=== PATIENT | female | born 1965 | race Caucasian/White ===

== ENCOUNTER 2021-04-09 07:54 | Inpatient (IN) ==
--- NOTE | 2021-03-25 11:47 | PAT Medication Instructions ---
Medication Instructions Date of Service March 25, 2021 Home Medications albuterol sulfate 1 puff INHALATION QID PRN cetirizine [Zyrtec] 10 mg PO QAM gabapentin 100 mg PO TID lisinopril 20 mg PO QAM montelukast 10 mg PO PM simvastatin [Zocor] 20 mg PO HS DO NOT take the morning of surgery cetirizine [Zyrtec] 10 mg PO QAM lisinopril 20 mg PO QAM Take morning of surgery With a small sip of water, OTHERWISE NOTHING TO EAT OR DRINK AFTER MIDNIGHT: albuterol sulfate 1 puff INHALATION QID PRN (if needed, and bring with you to the hospital) gabapentin 100 mg PO TID Take evening before surgery albuterol sulfate 1 puff INHALATION QID PRN (if needed) gabapentin 100 mg PO TID montelukast 10 mg PO PM simvastatin [Zocor] 20 mg PO HS Other Notes If you have any questions please call us at [phone] or [phone] or [phone] or [phone]
--- NOTE | 2021-03-26 11:32 | Anesthesiology Consultation ---
Date of Service March 26, 2021 Assessment & Plan (1) Encounter for pre-operative examination: COVID Status: As of 03/26 assessment, patient denies travel to endemic area, known exposure/sick contacts, or symptoms of COVID19. Patient advised to adhere to social distancing guidelines, wear a mask in public and avoid large crowds or unnecessary travel in the 2 weeks leading up to surgery. Preoperative COVID19 testing to be completed prior to surgery per surgeon's arrangements (03/17 3 at [facility]). Patient encouraged to be extra cautious/conscientious with COVID precautions between COVID testing and surgery. HCG AM DOS Chart Review Chart Review: Acceptable Risk for Surgery and Patient seen in Pre Admission Testing Teaching & Discussion Instructed NPO after midnight before surgery, except medications with 15 cc of water. Medication instructions provided according to the PAT guidelines. History Surgery Operation Date: 04/09/21 10:35 Proposed Procedures p L3-L5 Decompression and Fusion, Spinal Cord Monitoring - Mat Sauceda, Height/Weight Height: 5 ft 6 in Weight: 110.9 kg Allergies Allergy/AdvReac Type Severity Reaction Status Date / Time pseudoephedrine AdvReac Heart Verified 03/26/21 11:23 [From Sudafed] racing/palpitations muscle relaxers AdvReac Anxiety/res Uncoded 03/26/21 11:23 tlessness vanilla AdvReac Vomiting Uncoded 03/26/21 11:23 Medications Home Medications Medication Instructions Recorded Confirmed Last Taken albuterol sulfate 1 puff INHALATION QID PRN 03/16/21 03/16/21 Unknown cetirizine [Zyrtec] 10 mg PO QAM 03/16/21 03/16/21 Unknown gabapentin 100 mg PO TID 03/16/21 03/16/21 Unknown lisinopril 20 mg PO QAM 03/16/21 03/16/21 Unknown montelukast 10 mg PO PM 03/16/21 03/16/21 Unknown simvastatin [Zocor] 20 mg PO HS 03/16/21 03/16/21 Unknown Past Medical History Medical History (Updated 03/29/21 @ 09:02 by Ted Calderon) Asthma well controlled > rare inh use, none for months at a time Chronic back pain Degenerative disc disease Hyperlipidemia Hypertension Obesity Exercise / Class Metabolic Activity II 4-5 Yardwork/Stairs/Walk up hill (Denies CP or SOB with 1 FOS) Past Family History Family History Mother Colon cancer Past Surgical History Surgical History History of adenoidectomy History of cholecystectomy History of tonsillectomy History of tooth extraction Past Anesthesia History No Hx of Anesthesia Complications and No Family Hx of Anesthesia Complications History of PONV No Hx of PONV and No Hx of Motion Sickness (single ep of sea sickness) Social History Smoking Status: Never smoker Do You Dip or Chew Tobacco: No Hx Alcohol Use: No Hx Substance Use: No substance use type: does not use Review of Systems Pt denies any recent chest pain, shortness of breath, palpitations, cough, fever, URI, or uncontrolled acid reflux. Physical Exam Vital Signs BP: 108/69 P: 76bpm SPO2: 99% RA T: 98.4 F R: 12 ENMT Mouth: + dental bridge (upper R side/front) and + chipped teeth (chipped lower L tooth); no loose teeth Neck normal visual inspection and + limited neck extension (mildly) Respiratory normal respiratory effort, lungs clear to auscultation Cardiovascular RRR, no murmur, no edema Lab Results Anesthesia Preop Results Results Anesthesia Widget: WBC 5.96 K/uL (4.8-10.8) 03/26/21 Hgb 12.7 g/dL (12.0-16.0) 03/26/21 Hct 37.6 % (37-47) 03/26/21 Plt 234 K/uL (130-400) 03/26/21 Na 138 mmol/L (136-145) 03/26/21 K 3.8 mmol/L (3.5-5.1) 03/26/21 Cl 105 mmol/L (98-107) 03/26/21 CO2 27 mmol/L (21-32) 03/26/21 BUN 15 mg/dl (7-18) 03/26/21 Creat 1.06 mg/dl (0.6-1.2) 03/26/21 Glucose Level 64 mg/dl (70-99) L 03/26/21 PT 10.6 Seconds (9.0-12.0) 03/26/21 PTT 24.8 Seconds (21.0-31.0) 03/26/21 INR 1.0 (0.9-1.1) 03/26/21 Urine Color Yellow 03/26/21 Urine Appearance Clear (Clear) 03/26/21 Urine pH 5.5 (4.5-7.5) 03/26/21 Urine Specific [place] 1.008 (1.000-1.030) 03/26/21 Urine Protein Negative (Negative) 03/26/21 Urine Glucose (UA) Negative (Negative) 03/26/21 Urine Ketones Negative (Negative) 03/26/21 Urine Blood Negative (Negative) 03/26/21 Urine Nitrite Negative (Negative) 03/26/21 Urine Bilirubin Negative (Negative) 03/26/21 Urine Urobilinogen Negative (Negative) 03/26/21 Urine Leukocyte Esterase Negative (Negative) 03/26/21 Blood Type O Positive 03/26/21 Antibody Screen NEGATIVE 03/26/21 Testing Electrocardiogram Date: 03/26/21 Findings: + SB @ (58bpm) Chest X-Ray Date: 03/26/21 Findings: + NAD
[~2021-04-09 07:54] MED LIST: ACETAMINOPHEN 500 MG TAB PO SCH; CeleBREX 200 MG CAP PO SCH; GABAPENTIN 900 MG DOSE PO SCH; LR 15ML/HR IV SCH; ceFAZolin 2000MG 2,000 MG/15 ML SYR IV SCH
[2021-04-09] MEDS ORDERED: ATROPINE SULFATE 0.1 MG/ML 10ML SYR IV PRN (09:31)
[2021-04-09] MEDS ORDERED: ONDANSETRON INJ 2 MG/ML 2 ML VIAL IV PRN ×2 (09:31→14:56)
[2021-04-09] MEDS ORDERED: ePHEDrine sulfate 50 MG/ML AMP IV PRN (09:31)
[2021-04-09] MEDS ORDERED: HYDROmorphone INJ 2 MG/ML SYR/VIAL IV PRN (09:31)
[2021-04-09] MEDS ORDERED: fentaNYL citrate 100 MCG/2 ML VIAL IV PRN (09:31)
--- NOTE | 2021-04-09 09:34 | History & Physical Bridge Note ---
Date of Service April 09, 2021 History & Physical Bridge Note I have examined the patient, reviewed the History & Physical and in the interval since the performance of the History & Physical I have noted the following changes of clinical significance: no changes noted
--- NOTE | 2021-04-09 09:34 | History & Physical Report ---
Date of Service April 09, 2021 Assessment & Plan (1) Neurogenic claudication due to lumbar spinal stenosis: Admission and Anticipated Discharge Date Admission Date: L3-L5 decompression fusion History of Present Illness Chief Complaint: Back and leg pain Primary Care Provider: Anshul Hess PA-C This is a 55-year-old female who presents with chronic persistent back and leg pain. After failing stents course of nonoperative care she is here for surgical invention. Allergies Allergy/AdvReac Type Severity Reaction Status Date / Time pseudoephedrine AdvReac Intermediate Heart Verified 04/09/21 08:34 [From Sudafed] racing/palpitations muscle relaxers AdvReac Intermediate Anxiety/res Uncoded 04/09/21 08:34 tlessness vanilla AdvReac Intermediate Vomiting Uncoded 04/09/21 08:34 Home Medications Medication Instructions Recorded Confirmed Type albuterol sulfate 1 puff INHALATION QID PRN 03/16/21 04/09/21 History cetirizine [Zyrtec] 10 mg PO QAM 03/16/21 04/09/21 History gabapentin 100 mg PO TID 03/16/21 04/09/21 History lisinopril 20 mg PO QAM 03/16/21 04/09/21 History montelukast 10 mg PO PM 03/16/21 04/09/21 History simvastatin [Zocor] 20 mg PO HS 03/16/21 04/09/21 History Past Med/Surg History Medical History (Updated 04/09/21 @ 09:34 by Mat Sauceda DO) Asthma well controlled > rare inh use, none for months at a time Chronic back pain Degenerative disc disease Hyperlipidemia Hypertension Obesity Surgical History History of adenoidectomy History of cholecystectomy History of tonsillectomy History of tooth extraction Family History Mother Colon cancer Social History Smoking Status: Never smoker Second Hand Exposure: No; Do You Dip or Chew Tobacco: No; Tobacco Cessation Education Requested by Patient: No Hx Alcohol Use: No Hx Substance Use: No Preferred Language: Angolan Communication Ability: Effective Daytime Caregiver Required: No Beliefs That Will Affect Care: None Current Living Situation: Significant Other Other Information That Helps Us Care for You: No Feels Safe at Home: Yes Safety Concerns: Feels Safe At This Time Assistive Devices: Glasses Physical Exam Physical Exam: Patient is alert and oriented Heart regular rhythm Lungs clear to auscultation Results & Data ([facility]) Vital Signs (Past 12 Hours) Vital Signs Temp Pulse Resp BP Pulse Ox 04/09/21 08:51 37.2 C 67 18 137/74 98
[2021-04-09 09:45] LABS: Pregnancy Test, Serum Negative (Negative)
[2021-04-09] MEDS ORDERED: BUPIVACAINE/EPINEPHRINE 0.5% MPF 1:200,000 30 ML VIAL ONE ×2 (09:53→10:43)
[2021-04-09] MEDS ORDERED: MIDAZOLAM HCL 1 MG/ML 2ML VIAL ONE (09:57)
[2021-04-09] MEDS ORDERED: fentaNYL citrate 100 MCG/2 ML VIAL ONE (09:57)
[2021-04-09] MEDS ORDERED: FLOSEAL HEMOSTATIC MATRIX 10ML TOP ONE (11:09)
[2021-04-09] MEDS ORDERED: HYDROmorphone INJ 2 MG/ML SYR/VIAL ONE (11:11)
[2021-04-09] MEDS ORDERED: GLYCOPYRROLATE 0.2 MG/ML VIAL ONE (11:13)
[2021-04-09] MEDS ORDERED: ONDANSETRON INJ 2 MG/ML 2 ML VIAL ONE (11:13)
[2021-04-09] MEDS ORDERED: PHENYLEPHRINE 100MCG/ML 5ML SYR ONE (11:13)
[2021-04-09] MEDS ORDERED: LIDOCAINE 2% 2 ML VIAL/AMP(20MG/ML) INFIL ONE (11:13)
[2021-04-09] MEDS ORDERED: ROCURONIUM BROMIDE 10 MG/ML 5 ML VIAL IV ONE (11:13)
[2021-04-09] MEDS ORDERED: PROPOFOL IV EMULSION 10 MG/ML 20 ML VIAL IV ONE (11:13)
[2021-04-09] MEDS ORDERED: DEXAMETHASONE SOD INJ 4 MG/ML VIAL ONE (11:13)
[2021-04-09] MEDS ORDERED: ePHEDrine sulfate 50 MG/ML AMP ONE (11:13)
[2021-04-09] MEDS ORDERED: LARYING-O-JET KIT (LTA) ONE (11:13)
[2021-04-09] MEDS ORDERED: NEOSTIGMINE METHYLSULFATE 1 MG/ML 10ML VIAL ONE (11:13)
--- NOTE | 2021-04-09 12:54 | Fluoroscopy Report ---
FL lumbar spine 2-3V CLINICAL HISTORY: L3-5 DECOMPRESSION/FUSION/INTERBODY COMPARISON STUDY: FLUOROSCOPY TIME: 28 seconds. NUMBER OF FLUOROSCOPIC IMAGES: 2 FINDINGS: 2 intraoperative fluoroscopic spot images reveal postsurgical changes of an L3-L5 spinal de compression and fusion with L3-4 and L4-5 interbody fusions and posterior pedicle screw fixation IMPRESSION: Postsurgical changes of an L3-5 spinal decompression and fusion. ACT 112: Negative or not required by law. Electronically signed by: Ezequiel Weaver M.D. 04/09/2021 12:52 PM
--- NOTE | 2021-04-09 12:57 | Operative Report ---
Post Operative Report Pre & Post Diagnosis Operation Date: 04/09/21 09:45 Pre-Op Diagnosis: Spinal Stenosis, Lumbar Region with Neurogenic Claudication Post-Op Diagnosis: Spinal Stenosis, Lumbar Region with Neurogenic Claudication I identified the patient and participated in the time-out.: Yes Procedure Operation Date: 04/09/21 09:45 Actual Procedures #1 Lumbar decompression with bilateral medial facetectomies and foraminotomies L2-3, L3-4 and L4-5. #2 posterior spinal fusion L3-4 and L4-5. #3 placement posterior instrumentation L3-4 and L4-5. #4 interbody fusion L3-4 and L4-5 per #5 placement peek cage 12 x 22 mm at L3-4 and 13 x 22 mm at L for L5. #6 placement locally harvested morselized autograft in the posterior gutters. #7 placement of I factor combined with Vitoss in the interbody space and posterior lateral gutters. Surgeon Mat Sauceda, DO Addressing Machine Operator Nick Kong Estimated Blood Loss 200 Findings See Below Patient is 5 foot 6 inches tall weighing over 109 kg with a BMI in excess of 38. The patient's body habitus did contribute to significant Technical difficulty requiring her deepest retractors longus instruments in order to perform this procedure. At least 50% increase to the operative time. Specimens None Indications This is a 55-year-old female who presents with above-mentioned diagnosis after failing since course of nonoperative care she is here for the above-mentioned procedure. Description of Procedure Patient was met with identified informed consent obtained. Patient was then taken to the operative suite after undergoing general intubation placed in the prone position on Nehemias table on top of the Oc frame. All bony prominences well-padded eyes inspected to ensure no external pressure placed upon the bed at this point the lumbar spine was prepped and draped in normal sterile fashion. Sharp dissection with the assistance of Bovie cautery performed down to and exposing the lamina and transverse processes of L3-L4-L5 bilaterally. From caudal to cephalad fashion complete laminectomy of L4 L3 and partial laminectomy of L2 was performed including bilateral medial facetectomies and foraminotomies addressing severe central lateral recess as well as foraminal stenosis. Pedicle screws were then placed in L3-L4-L5 bilaterally with assistance of fluoroscopy and the proper sized rishabh placed. By way of a transforaminal portion left complete discectomy of L4-L5 was performed endplates curetted to subcortical being bone and a 13 x 22 mm peek cage filled with I factor tapped into position. Then proceeded to L3-L4 and again by way of a transforaminal portion left discectomy performed endplates curetted to subcortical bleeding bone and a 12 x 22 mm peek cage filled with I factor tapped in position. The rods were then compressed locked in final position bilaterally. The transverse processes of L3 L4-5 burred to subcortical bleeding bone. Locally harvested morselized autograft I factor and Vitoss was then placed in the posterior gutters. 15 round ROCIO drain inserted. The incision was then closed with 1 Vicryl the fascia 2-0 Vicryl subcutaneously and 4 Monocryl for final skin closure. Steri-Strip sterile dressings placed. Patient will continue PACU stable condition. Please note spinal cord monitoring was utilized at the procedure no changes noted. Lastly Renetta Queen was present throughout the entire surgery involved the patient positioning complex portions of the s urgery and final skin closure. I attest to the content of the Intraoperative Record and any orders documented therein. Any exceptions are noted below.
--- NOTE | 2021-04-09 14:14 | Anesthesiology Progress Note ---
Date of Service April 09, 2021 Anesthesia Post Procedure Vital Signs Vital Signs: Temp Pulse Pulse Resp BP BP Pulse Ox 04/09/21 14:10 36.3 C L 60 14 111/71 98 04/09/21 14:00 60 14 117/60 98 04/09/21 13:50 60 14 122/64 97 04/09/21 13:40 67 20 122/65 94 04/09/21 13:30 66 15 117/58 L 98 04/09/21 13:20 68 18 114/66 99 04/09/21 13:14 36.4 C L 83 19 113/80 99 04/09/21 08:51 37.2 C 67 18 137/74 98 Pain Intensity Left Leg: Pain Intensity: 4 Transfer of Care Handoff Completed per policy Notes Mental Status: alert / awake / arousable and participated in evaluation Patient Amnestic to Procedure: Yes Nausea / Vomiting: adequately controlled Pain: adequately controlled Airway Patency, RR, SpO2: stable & adequate BP & HR: stable & adequate Hydration State: stable & adequate Anesthetic Complications: no major complications apparent
[2021-04-09] MEDS: LACTATED RINGER'S 1,000 ML IV SCH (14:45)
[2021-04-09] MEDS ORDERED: SOD PHOSPHATE/SOD BIPHOSPHATE ENEMA 132 ML BTL PR PRN (14:56)
[2021-04-09] MEDS ORDERED: HYDROmorphone INJ 0.5 MG/0.5 ML SYR IV PRN (14:56)
[2021-04-09] MEDS ORDERED: DO NOT ADMINISTER PNEUMOCOCCAL VACCINE PRN (14:56)
[2021-04-09] MEDS ORDERED: NALOXONE HCL 0.4 MG/1 ML VIAL/CARP IV PRN (14:56)
[2021-04-09] MEDS ORDERED: METOCLOPRAMIDE HCL INJ 5 MG/ML 2 ML VIAL IV PRN (14:56)
[2021-04-09] MEDS ORDERED: FAMOTIDINE 20 MG TAB PO PRN (14:56)
[2021-04-09] MEDS ORDERED: ALUMINUM/MAGNESIUM SUSP 30 ML UDC PO PRN (14:56)
[2021-04-09] MEDS ORDERED: LORazepam 0.5 MG/1 ML VIAL IV PRN (14:56)
[2021-04-09] MEDS ORDERED: LORazepam 0.5 MG TAB PO PRN (14:56)
[2021-04-09] MEDS ORDERED: ONDANSETRON 4 MG OD TAB PO PRN (14:56)
[2021-04-09] MEDS ORDERED: MAGNESIUM HYDROXIDE SUSP 30 ML UDC PO PRN (14:56)
[2021-04-09] MEDS ORDERED: oxyCODONE HCL IR 5 MG TAB (IMMEDIATE RELEASE) PO PRN (14:56)
[2021-04-09] MEDS ORDERED: diphenhydrAMINE Capsule 25 MG CAP PO PRN (14:56)
[2021-04-09] MEDS ORDERED: traMADol HCL 50 MG TABLET PO PRN (14:56)
[2021-04-09] MEDS ORDERED: HYDROmorphone INJ 1 MG/ML SYRINGE IV PRN (14:56)
[2021-04-09] MEDS ORDERED: hydrOXYzine HCl 25 MG TAB PO PRN (14:56)
[2021-04-09] MEDS ORDERED: PROMETHAZINE HCL 12.5 MG in SODIUM CHLORIDE 0.9% 50 ML IV PRN (14:56)
[2021-04-09] MEDS ORDERED: ACETAMINOPHEN 1,000 MG/100 ML VIAL IV PRN (14:56)
[2021-04-09] MEDS ORDERED: DO NOT ADMINISTER FLU VACCINE PRN (14:56)
[2021-04-09] MEDS: KETOROLAC 30 MG/ML VIAL IV SCH ×2 (15:38→20:33)
--- NOTE | 2021-04-09 15:38 | Consultation ---
Date of Consultation April 09, 2021 Assessment & Plan (1) Status post lumbar surgery: Post op day# 0 S/P L3-L5 decompression and fusion by Dr Sauceda EBL#200ml -pain management per ortho -wound management per ortho -PT/OT as appropriate -DVT prophylaxis per ortho -incentive spirometry -monitor H&H for acute blood loss anemia; pre-op Hgb: 12.7 (2) Hypertension: -Continue lisinopril with holding parameters (3) Hyperlipidemia: -Continue simvastatin (4) Asthma: -Continue montelukast, albuterol prn DVT Prophylaxis -SCDs per ortho Disposition per primary service Follows with Anshul Hess PA-C for routine care Pt was seen and care coordinated with Dr Malloy. See addendum Thank you for this consultation. We will follow the patient with you during their hospital stay. You can reach a member of the [facility] Hospitalist Team 08/05 via tiger text Supervising Physician Co-Signing Physician Notes Patient seen and examined by me, care coordinated with SANDY Estevez, please refer to her note above for further detail. Pt is 55 y/o F with PMH CAD, HLD, asthma, obesity seen in medical consultation s/p L3-L5 decompression and fusion today by Dr. Sauceda. Postop patient reported mild nausea, now improved, she is no distress. Patient is alert and oriented and answering questions appropriately. Heart sounds regular, lungs are clear to auscultation bilaterally without any wheezing rhonchi or crackles. Abdomen is soft, obese, positive bowel sounds, nontender. Patient is moving extremities. She has Green catheter placed, with clear yellow urine. We will continue to closely monitor her hemodynamic status. Monitor for post-op anemia. Sushant Malloy MD History of Present Illness Requesting Physician: Dr Sauceda Reason for Consultation: Post op medical management Attending Physician: Mat Sauecda DO History of Present Illness Pt is 55 y/o F with PMH CAD, HLD, asthma, obesity seen in medical consultation s/p L3-L5 decompression and fusion today by Dr. Sauceda. Postop patient reports some nausea which has improved with antiemetic. Denies vomiting. Reports still has some numbness sensation to bilateral lower extremities but is starting to be able to move her legs. Denies headache, dizziness shortness of breath, chest pain, abdominal pain. Denies fever/chills, diaphoresis, neck pain, palpitations, cough, sore throat, choking, extremity edema, rashes, urinary symptoms. Allergies Allergy/AdvReac Type Severity Reaction Status Date / Time pseudoephedrine AdvReac Intermediate Heart Verified 04/09/21 08:34 [From Sudafed] racing/palpitations muscle relaxers AdvReac Intermediate Anxiety/res Uncoded 04/09/21 08:34 tlessness vanilla AdvReac Intermediate Vomiting Uncoded 04/09/21 08:34 Home Medications Medication Instructions Recorded Confirmed Type albuterol sulfate 1 puff INHALATION QID PRN 03/16/21 04/09/21 History cetirizine [Zyrtec] 10 mg PO QAM 03/16/21 04/09/21 History gabapentin 100 mg PO TID 03/16/21 04/09/21 History lisinopril 20 mg PO QAM 03/16/21 04/09/21 History montelukast 10 mg PO PM 03/16/21 04/09/21 History simvastatin [Zocor] 20 mg PO HS 03/16/21 04/09/21 History Patient History Medical History (Updated 04/09/21 @ 15:34 by Tigist Hebert PA-C) Asthma well controlled > rare inh use, none for months at a time Chronic back pain Degenerative disc disease Hyperlipidemia Hypertension Obesity Surgical History (Updated 04/09/21 @ 15:34 by Tigist Hebert PA-C) History of adenoidectomy History of cholecystectomy History of tonsillectomy History of tooth extraction Family History Mother Colon cancer Social History Smoking Status: Never smoker Second Hand Exposure: No; Do You Dip or Chew Tobacco: No; Tobacco Cessation Education Requested by Patient: No Hx Alcohol Use: No Hx Substance Use: No Preferred Language: German Communication Ability: Effective Yolk Spray Drier Required: No Beliefs That Will Affect Care: None Current Living Situation: Significant Other Other Information That Helps Us Care for You: No Feels Safe at Home: Yes Safety Concerns: Feels Safe At This Time Assistive Devices: Walker Review of Systems Review of Systems: All systems reviewed & are unremarkable except as noted in HPI & below Physical Exam Physical Exam: General: no distress, obese Head: normocephalic, atraumatic Eyes: conjunctiva non-injected, anicteric ENT: normal inspection external ears, nose, mucous membranes moist Neck: supple, trachea midline Lungs: clear, no respiratory distress, no wheezing/rhonchi/rales CV: RRR, no murmur,no pretibial edema Abd: normal BS, soft, non-tender Back: Surgical dressing in place is dry, ROCIO drain in place Ext: no cyanosis, no calf tenderness; pedal pushes and pulls intact bilaterally Neuro: A&O x 3, no focal deficits noted, normal affect Skin: warm, dry Results & Data ([facility]) Vital Signs (Past 12 Hours) Vital Signs Temp Pulse Pulse Resp BP BP Pulse Ox 04/09/21 14:20 60 14 109/75 98 04/09/21 14:10 36.3 C L 60 14 111/71 98 04/09/21 14:00 60 14 117/60 98 04/09/21 13:50 60 14 122/64 97 04/09/21 13:40 67 20 122/65 94 04/09/21 13:30 66 15 117/58 L 98 04/09/21 13:20 68 18 114/66 99 04/09/21 13:14 36.4 C L 83 19 113/80 99 04/09/21 08:51 37.2 C 67 18 137/74 98
[2021-04-09] MEDS: GABAPENTIN 100 MG CAP PO SCH ×2 (16:08→20:26)
[2021-04-09] MEDS: ceFAZolin 2000MG 2,000 MG/15 ML SYR IV SCH (17:38)
[2021-04-09] MEDS: MONTELUKAST SODIUM 10 MG TABLET PO SCH (20:26)
[2021-04-09] MEDS: SIMVASTATIN 20 MG TAB PO SCH (20:27)
[2021-04-09] MEDS: DOCUSATE SODIUM/SENNA 50/8.6MG TAB PO SCH (20:32)
[2021-04-10] MEDS: LACTATED RINGER'S 1,000 ML IV SCH ×2 (00:16→05:28)
[2021-04-10] MEDS: ceFAZolin 2000MG 2,000 MG/15 ML SYR IV SCH (02:07)
[2021-04-10] MEDS: KETOROLAC 30 MG/ML VIAL IV SCH ×2 (02:07→08:21)
[2021-04-10] MEDS: POLYETHYLENE (MIRALAX) 17 GM PACK PO SCH ×4 (05:28→23:40)
[2021-04-10 06:09] LABS: Hemoglobin 9.9 g/dL (12.0-16.0); Immature Granulocytes # (auto) 0.03 K/uL (0.00-0.02); Immature Granulocytes % (auto) 0.3 %; Lymphocytes # (auto) 0.82 K/uL (1.2-3.4); Lymphocytes % (auto) 7.1 %; Mean Corpuscular Hemoglobin 31.5 pg (25-34); Mean Corpuscular Hgb Conc 34.1 g/dL (32-36); Mean Corpuscular Volume 92.4 fL (80-100); Mean Platelet Volume 9.1 fL (7.4-10.4); Monocytes # (auto) 0.59 K/uL (0.11-0.59); Monocytes % (auto) 5.1 %; Neutrophils # (auto) 10.11 K/uL (1.4-6.5); Neutrophils % (auto) 87.5 %; Platelet Count 168 K/uL (130-400); RDW Coefficient of Variation 12.7 % (11.5-14.5); RDW Standard Deviation 42.8 fL (36.4-46.3); Red Blood Count 3.14 M/uL (4.2-5.4); White Blood Count 11.55 K/uL (4.8-10.8)
[2021-04-10 06:40] LABS: BUN Creatinine Ratio 15.9 (10-20); Creatinine Clr Calc Pharmacy 74.5 ml/min; Est GFR (African American) 67.4 ml/min; Est GFR (Non-African American) 58.2 ml/min; Potassium 4.7 mmol/L (3.5-5.1)
--- NOTE | 2021-04-10 07:03 | Hospitalist Progress Note ---
Date of Service April 10, 2021 Assessment & Plan (1) Status post lumbar surgery: Post op day# 1 S/P L3-L5 decompression and fusion by Dr Sauceda -pain management per ortho -wound management per ortho -PT/OT as appropriate -DVT prophylaxis per ortho -incentive spirometry -monitor H&H for acute blood loss anemia; pre-op Hgb: 12.7 Anemia, acute blood loss (post-op) and dilutional - current Hgb 9.9, preop Hgb 12.7 - expected, no need for blood transfusion at this time (2) Hypertension: -Continue lisinopril with holding parameters (3) Hyperlipidemia: -Continue simvastatin (4) Asthma: -Continue montelukast, albuterol prn DVT Prophylaxis -SCDs per ortho Disposition per primary service Follows with Anshul Hess PA-C for routine care Thank you for this consultation. We will follow the patient with you during their hospital stay. You can reach a [facility] via tiger text Admission and Anticipated Discharge Date Admission Date: April 09, 2021 Subjective Patient seen in postop, medical consult Currently sitting up in bed, in no acute distress Reported mild dizziness with walking yesterday after surgery Currently seems to be doing well, no chest pain, shortness of breath, abdominal pain, nausea or vomiting also denies any fevers or chills Review of Systems Review of Systems: All systems reviewed & are unremarkable except as noted in HPI & below Constitutional: no fever and no chills Respiratory: no cough and no dyspnea Cardiovascular: no chest pain and no palpitations Gastrointestinal: no abdominal pain, no nausea and no vomiting Physical Exam Physical Exam: General: no distress, obese Head: normocephalic, atraumatic Eyes: conjunctiva non-injected, anicteric ENT: normal inspection external ears, nose, mucous membranes moist Neck: supple, trachea midline Lungs: clear, no respiratory distress, no wheezing/rhonchi/rales CV: RRR, no murmur,no pretibial edema Abd: normal BS, soft, non-tender Back: Surgical dressing in place is dry, ROCIO drain in place Ext: no cyanosis, no calf tenderness; pedal pushes and pulls intact bilaterally Neuro: A&O x 3, no focal deficits noted, normal affect Skin: warm, dry Results & Data Results & Data ([facility]) Vital Signs (Past 12 Hours) Vital Signs Temp Pulse Resp BP Pulse Ox 04/10/21 02:11 36.4 C L 74 18 122/75 94 04/09/21 21:55 36.5 C 59 L 16 114/72 98 Laboratory Results 04/10/21 04/10/21 04/09/21 Range/Units 05:50 05:50 08:28 WBC 11.55 H (4.8-10.8) K/uL RBC 3.14 L (4.2-5.4) M/uL Hgb 9.9 L (12.0-16.0) g/dL Hct 29.0 L (37-47) % MCV 92.4 (80-100) fL MCH 31.5 (25-34) pg MCHC 34.1 (32-36) g/dL RDW Std Deviation 42.8 (36.4-46.3) fL RDW Coeff of Marla 12.7 (11.5-14.5) % Plt Count 168 (130-400) K/uL MPV 9.1 (7.4-10.4) fL Immature Gran % (Auto) 0.3 % Neut % (Auto) 87.5 % Lymph % (Auto) 7.1 % [place] % (Auto) 5.1 % Eos % (Auto) 0.0 % Baso % (Auto) 0.0 % Neut # (Auto) 10.11 H (1.4-6.5) K/uL Lymph # (Auto) 0.82 L (1.2-3.4) K/uL [place] # (Auto) 0.59 (0.11-0.59) K/uL Eos # (Auto) 0.00 (0-0.5) K/uL Baso # (Auto) 0.00 (0-0.2) K/uL Immature Gran # (Auto) 0.03 H (0.00-0.02) K/uL Sodium 137 (136-145) mmol/L Potassium 4.7 (3.5-5.1) mmol/L Chloride 105 (98-107) mmol/L Carbon Dioxide 26 (21-32) mmol/L Anion Gap 6.0 (3-11) BUN 17 (7-18) mg/dl Creatinine 1.08 (0.6-1.2) mg/dl Est Cr Clr Drug Dosing 74.5 ml/min Est GFR ( Amer) 67.4 ml/min Est GFR (Non-Af Amer) 58.2 ml/min BUN/Creatinine Ratio 15.9 (10-20) Glucose 125 H (70-99) mg/dl Calcium 9.0 (8.5-10.1) mg/dl HCG, Qual Negative (Negative) COVID-19 Eval Order SARS-CoV-2, RNA, NAAT (NEGATIVE) Blood Type Antibody Screen Crossmatch 04/09/21 04/09/21 04/09/21 Range/Units 08:28 08:13 08:13 WBC (4.8-10.8) K/uL RBC (4.2-5.4) M/uL Hgb (12.0-16.0) g/dL Hct (37-47) % MCV (80-100) fL MCH (25-34) pg MCHC (32-36) g/dL RDW Std Deviation (36.4-46.3) fL RDW Coeff of Marla (11.5-14.5) % Plt Count (130-400) K/uL MPV (7.4-10.4) fL Immature Gran % (Auto) % Neut % (Auto) % Lymph % (Auto) % [place] % (Auto) % Eos % (Auto) % Baso % (Auto) % Neut # (Auto) (1.4-6.5) K/uL Lymph # (Auto) (1.2-3.4) K/uL [place] # (Auto) (0.11-0.59) K/uL Eos # (Auto) (0-0.5) K/uL Baso # (Auto) (0-0.2) K/uL Immature Gran # (Auto) (0.00-0.02) K/uL Sodium (136-145) mmol/L Potassium (3.5-5.1) mmol/L Chloride (98-107) mmol/L Carbon Dioxide (21-32) mmol/L Anion Gap (3-11) BUN (7-18) mg/dl Creatinine (0.6-1.2) mg/dl Est Cr Clr Drug Dosing ml/min Est GFR ( Amer) ml/min Est GFR (Non-Af Amer) ml/min BUN/Creatinine Ratio (10-20) Glucose (70-99) mg/dl Calcium (8.5-10.1) mg/dl HCG, Qual (Negative) COVID-19 Eval [facility] [place] [place] SARS-CoV-2, RNA, NAAT NEGATIVE (NEGATIVE) Blood Type O Positive Antibody Screen NEGATIVE Crossmatch See Detail Medications Administered Current Inpatient Medications Acetaminophen (Acetaminophen 500 Mg Tab) 1,000 mg PO Q8H PRN PRN Reason: MILD Pain Scale 1,2,3 & Pre PT Stop: 05/09/21 14:55 Al Hydrox/Mg Hydrox/Simethicone (Aluminum/Magnesium Susp 30 Ml Udc) 30 ml PO Q6H PRN PRN Reason: Dyspepsia Stop: 05/09/21 14:55 Bisacodyl (Bisacodyl 10 Mg Supp) 10 mg OR DAILY PRN PRN Reason: Constipation Stop: 05/11/21 13:05 Cetirizine HCl (Cetirizine Hcl 10 Mg Tablet) 10 mg PO [facility] Stop: 05/10/21 08:59 Diphenhydramine HCl (Diphenhydramine Capsule 25 Mg Cap) 25 mg PO Q6H PRN PRN Reason: Allergic Rhinitis/Insomnia Stop: 05/09/21 14:55 Famotidine (Famotidine 20 Mg Tab) 20 mg PO Q12H PRN PRN Reason: Dyspepsia Stop: 05/09/21 14:55 Gabapentin (Gabapentin 100 Mg Cap) 100 mg PO BID@0900,1400 [facility] Stop: 05/09/21 15:14 Last Admin: 04/09/21 16:08 Dose: Not Given Documented by: Gabapentin (Gabapentin 100 Mg Cap) 200 mg PO [facility] Stop: 05/09/21 20:59 Last Admin: 04/09/21 20:26 Dose: 200 mg Documented by: Hydromorphone HCl (Hydromorphone Inj 0.5 Mg/0.5 Ml Syr) 0.5 mg IV Q3H PRN PRN Reason: MOD pain (scale 4-6) & Pre PT Stop: 04/23/21 14:55 Hydromorphone HCl (Hydromorphone Inj 1 Mg/Ml Syringe) 1 mg IV Q3H PRN PRN Reason: severe pain (scale 7-10) Stop: 04/23/21 14:55 Hydroxyzine HCl (Hydroxyzine Hcl 25 Mg Tab) 25 mg PO Q8H PRN PRN Reason: Anxiety Stop: 05/09/21 14:55 Acetaminophen (Ofirmev) 1,000 mg in 100 mls @ 400 mls/hr IV Q8H PRN PRN Reason: Pain Rating 1-3 & Pre PT Stop: 04/10/21 13:06 Lorazepam (Ativan) 0.5 mg in 1 mls @ 1 mls/min IV Q8H PRN PRN Reason: Sedation/Anxiety Stop: 05/09/21 14:55 Promethazine HCl 12.5 mg/ (Sodium Chloride) 50.5 mls @ 202 mls/hr IV Q6H PRN PRN Reason: Nausea &/or Vomiting Stop: 05/09/21 14:55 Influenza Virus Vaccine Quadrival (Do Not Administer Flu Vaccine) 1 ea N/A PRN PRN PRN Reason: Notification Stop: 05/09/21 14:55 Ketorolac Tromethamine (Ketorolac 30 Mg/Ml Vial) 30 mg IV Q6H [facility] Stop: 04/10/21 08:57 Last Admin: 04/10/21 02:07 Dose: 30 mg Documented by: Lisinopril (Lisinopril 20 Mg Tab) 20 mg PO QAM [facility] Stop: 05/10/21 08:59 Lorazepam (Lorazepam 0.5 Mg Tab) 0.5 mg PO Q8H PRN PRN Reason: sedation/anxiety Stop: 05/09/21 14:55 Magnesium Hydroxide (Magnesium Hydroxide Susp 30 Ml Udc) 30 ml PO Q24H PRN PRN Reason: Constipation Stop: 05/09/21 14:55 Metoclopramide HCl (Metoclopramide Hcl Inj 5 Mg/Ml 2 Ml Vial) 10 mg IV Q6H PRN PRN Reason: Nausea &/or Vomiting Stop: 05/09/21 14:55 Last Admin: 04/09/21 15:38 Dose: 10 mg Documented by: Montelukast Sodium (Montelukast Sodium 10 Mg Tablet) 10 mg PO PM [facility] Stop: 05/09/21 20:59 Last Admin: 04/09/21 20:26 Dose: 10 mg Documented by: Naloxone HCl (Naloxone Hcl 0.4 Mg/1 Ml Vial/Carp) 0.1 mg IV Q5M PRN PRN Reason: Oversedation/respiratory dep Stop: 05/09/21 14:55 Ondansetron HCl (Ondansetron Inj 2 Mg/Ml 2 Ml Vial) 4 mg IV Q6H PRN PRN Reason: Nausea &/or Vomiting Stop: 05/09/21 14:55 Ondansetron HCl (Ondansetron 4 Mg Od Tab) 4 mg PO Q6H PRN PRN Reason: Nausea Stop: 05/09/21 14:55 Oxycodone HCl (Oxycodone Hcl Ir 5 Mg Tab (Immediate Release)) 5 - 10 mg PO Q4H PRN PRN Reason: Pain & Pre PT Stop: 04/23/21 14:55 Pneumococcal Polyvalent Vaccine (Do Not Administer Pneumococcal Vaccine) 1 ea N/A PRN PRN PRN Reason: Notification Stop: 05/09/21 14:55 Polyethylene Glycol (Polyethylene (Miralax) 17 Gm Pack) 17 gm PO Q6 [facility] Stop: 05/10/21 05:59 Last Admin: 04/10/21 05:28 Dose: 17 gm Documented by: Senna/Docusate Sodium (Docusate Sodium/Senna 50/8.6mg Tab) 2 tab PO HS [facility] Stop: 05/09/21 20:59 Last Admin: 04/09/21 20:32 Dose: 2 tab Documented by: Simvastatin (Simvastatin 20 Mg Tab) 20 mg PO HS [facility] Stop: 05/09/21 20:59 Last Admin: 04/09/21 20:27 Dose: 20 mg Documented by: Sodium Biphosphate/Sodium Phosphate (Sod Phosphate/Sod Biphosphate Enema 132 Ml Btl) 132 ml OR ONE PRN PRN Reason: Constipation Stop: 05/09/21 14:55 Tramadol HCl (Tramadol Hcl 50 Mg Tablet) 50 - 100 mg PO Q4H PRN PRN Reason: Moderate-Severe pain & Pre PT Stop: 05/09/21 14:55
[2021-04-10] MEDS: GABAPENTIN 100 MG CAP PO SCH ×3 (08:22→19:31)
[2021-04-10] MEDS: CETIRIZINE HCL 10 MG TABLET PO SCH (08:22)
[2021-04-10] MEDS: lisinopril 20 MG TAB PO SCH (08:22)
--- NOTE | 2021-04-10 08:40 | Orthopedic Progress Note ---
Date of Service April 10, 2021 Assessment & Plan (1) Neurogenic claudication due to lumbar spinal stenosis: Patient is doing well postoperative day 1 posterior lumbar decompression and fusion L3-5. She will start physical therapy today. DVT prophylaxis in the form of teds and SCDs. Maintain ROCIO drain and dressing. Continue with pain control. Anticipate discharge home within the next 24 to 48 hours. Admission and Anticipated Discharge Date Admission Date: April 09, 2021 Supervising Physician Co-Signing Physician Notes Dr. Mat Sauceda Subjective Patient is postoperative day 1 posterior lumbar decompression and instrumented fusion L3-5. She is doing well. She had an uneventful evening. Lower extremity symptoms are improving. Back pain is controlled. ROCIO drain output last shift was 90 cc. H&H this morning are 9.9 and 29.0 respectively. Green catheter intact and draining Review of Systems Review of Systems: All systems reviewed & are unremarkable except as noted in HPI & below Physical Exam Physical Exam: She sitting in her chair eating breakfast. Alert and oriented x3 no acute distress NATE hose intact and calves are soft and nontender bilaterally Motor testing is 5/5 bilateral lower extremities Lumbar dressing is clean dry and intact with functioning ROCIO drain Constitutional: WD/WN, vitals as above Eyes: normal visual malagon by confrontation Neck: normal visual inspection Cardiovascular: Extremities: normal capillary refill Chest (Breasts): Chest: normal inspection of chest Gastrointestinal (Abdomen): Inspection/Auscultation: abdomen normal to inspection Musculoskeletal: no cyanosis or clubbing, extremities motor strength 5/5 Extremities: extremities normal to inspection and strength 5/5 throughout Skin: no rashes, warm and dry Neurologic: normal touch/pain/proprioception and moves all extremities Psychiatric: A+Ox3, euthymic affect Results & Data ([facility]) Vital Signs (Past 12 Hours) Vital Signs Temp Pulse Resp BP Pulse Ox 04/10/21 07:46 36.8 C 60 16 103/64 97 04/10/21 02:11 36.4 C L 74 18 122/75 94 04/09/21 21:55 36.5 C 59 L 16 114/72 98
[2021-04-10] MEDS: ACETAMINOPHEN 500 MG TAB PO PRN (14:49)
[2021-04-10] MEDS: MONTELUKAST SODIUM 10 MG TABLET PO SCH (19:31)
[2021-04-10] MEDS: DOCUSATE SODIUM/SENNA 50/8.6MG TAB PO SCH (19:32)
[2021-04-10] MEDS: SIMVASTATIN 20 MG TAB PO SCH (19:32)
[2021-04-11] MEDS: ACETAMINOPHEN 500 MG TAB PO PRN ×2 (02:31→18:22)
[2021-04-11] MEDS: POLYETHYLENE (MIRALAX) 17 GM PACK PO SCH (05:56)
[2021-04-11 06:16] LABS: Hematocrit (blood only) 28.7 % (37-47); Hemoglobin 9.5 g/dL (12.0-16.0); Mean Corpuscular Hgb Conc 33.1 g/dL (32-36); Mean Corpuscular Volume 96.6 fL (80-100); Mean Platelet Volume 9.1 fL (7.4-10.4); Platelet Count 164 K/uL (130-400); RDW Coefficient of Variation 13.4 % (11.5-14.5); RDW Standard Deviation 46.7 fL (36.4-46.3); Red Blood Count 2.97 M/uL (4.2-5.4); White Blood Count 7.69 K/uL (4.8-10.8)
[2021-04-11 06:51] LABS: BUN Creatinine Ratio 22.6 (10-20); Calcium 8.8 mg/dl (8.5-10.1); Creatinine Clr Calc Pharmacy 87.5 ml/min; Est GFR (African American) 81.8 ml/min; Est GFR (Non-African American) 70.6 ml/min; Potassium 4.7 mmol/L (3.5-5.1)
--- NOTE | 2021-04-11 08:17 | Hospitalist Progress Note ---
Date of Service April 11, 2021 Assessment & Plan (1) Status post lumbar surgery: Post op day# 2 S/P L3-L5 decompression and fusion by Dr Sauceda -pain management per ortho -wound management per ortho -PT/OT as appropriate -DVT prophylaxis per ortho -incentive spirometry -monitor H&H for acute blood loss anemia; pre-op Hgb: 12.7 Anemia, acute blood loss (post-op) and dilutional - current Hgb 9.5 (stable from yesterday Hgb 9.9), preop Hgb 12.7 - expected, no need for blood transfusion at this time (2) Hypertension: -Continue lisinopril with holding parameters (3) Hyperlipidemia: -Continue simvastatin (4) Asthma: -Continue montelukast, albuterol prn DVT Prophylaxis -SCDs per ortho Disposition per primary service Follows with Anshul Hess PA-C for routine care Thank you for this consultation. We will follow the patient with you during their hospital stay. You can reach a [facility] via tiger text Admission and Anticipated Discharge Date Admission Date: April 09, 2021 Subjective Patient seen in postop, medical consult Currently sitting up in chair, in no acute distress, just ate breakfast Reports she was walking in hallway w/o difficulty Green removed, pt voids w/o difficulty, no BM yet Denies any chest pain, shortness of breath, abdominal pain, nausea or vomiting also denies any fevers or chills Review of Systems Review of Systems: All systems reviewed & are unremarkable except as noted in HPI & below Constitutional: no fever and no chills Respiratory: no cough and no dyspnea Cardiovascular: no chest pain and no palpitations Gastrointestinal: no abdominal pain, no nausea and no vomiting Physical Exam Physical Exam: General: no distress, obese Head: normocephalic, atraumatic Eyes: conjunctiva non-injected, anicteric ENT: normal inspection external ears, nose, mucous membranes moist Neck: supple, trachea midline Lungs: clear, no respiratory distress, no wheezing/rhonchi/rales CV: RRR, no murmur,no pretibial edema Abd: normal BS, soft, non-tender Back: Surgical dressing in place is dry, ROCIO drain in place Ext: no cyanosis, no calf tenderness; pedal pushes and pulls intact bilaterally Neuro: A&O x 3, no focal deficits noted, normal affect Skin: warm, dry Results & Data Results & Data ([facility]) Vital Signs (Past 12 Hours) Vital Signs Temp Pulse Resp BP BP Pulse Ox 04/11/21 08:10 109/68 04/11/21 07:56 36.7 C 71 16 88/57 L 95/61 L 98 04/10/21 22:32 36.9 C 62 16 105/67 97 Laboratory Results 04/11/21 04/11/21 Range/Units 06:01 06:01 WBC 7.69 (4.8-10.8) K/uL RBC 2.97 L (4.2-5.4) M/uL Hgb 9.5 L (12.0-16.0) g/dL Hct 28.7 L (37-47) % MCV 96.6 (80-100) fL MCH 32.0 (25-34) pg MCHC 33.1 (32-36) g/dL RDW Std Deviation 46.7 H (36.4-46.3) fL RDW Coeff of Marla 13.4 (11.5-14.5) % Plt Count 164 (130-400) K/uL MPV 9.1 (7.4-10.4) fL Sodium 140 (136-145) mmol/L Potassium 4.7 (3.5-5.1) mmol/L Chloride 109 H (98-107) mmol/L Carbon Dioxide 30 (21-32) mmol/L Anion Gap 1.0 L (3-11) BUN 21 H (7-18) mg/dl Creatinine 0.92 (0.6-1.2) mg/dl Est Cr Clr Drug Dosing 87.5 ml/min Est GFR ( Amer) 81.8 ml/min Est GFR (Non-Af Amer) 70.6 ml/min BUN/Creatinine Ratio 22.6 H (10-20) Glucose 88 (70-99) mg/dl Calcium 8.8 (8.5-10.1) mg/dl Medications Administered Current Inpatient Medications Acetaminophen (Acetaminophen 500 Mg Tab) 1,000 mg PO Q8H PRN PRN Reason: MILD Pain Scale 1,2,3 & Pre PT Stop: 05/09/21 14:55 Last Admin: 04/11/21 02:31 Dose: 1,000 mg Documented by: Al Hydrox/Mg Hydrox/Simethicone (Aluminum/Magnesium Susp 30 Ml Udc) 30 ml PO Q6H PRN PRN Reason: Dyspepsia Stop: 05/09/21 14:55 Bisacodyl (Bisacodyl 10 Mg Supp) 10 mg HI DAILY PRN PRN Reason: Constipation Stop: 05/11/21 13:05 Cetirizine HCl (Cetirizine Hcl 10 Mg Tablet) [facility] [place] Stop: 05/10/21 08:59 Last Admin: 04/10/21 08:22 Dose: 10 mg Documented by: Diphenhydramine HCl (Diphenhydramine Capsule 25 Mg Cap) 25 mg PO Q6H PRN PRN Reason: Allergic Rhinitis/Insomnia Stop: 05/09/21 14:55 Famotidine (Famotidine 20 Mg Tab) 20 mg PO Q12H PRN PRN Reason: Dyspepsia Stop: 05/09/21 14:55 Gabapentin (Gabapentin 100 Mg Cap) 100 mg PO BID@0900,1400 [facility] Stop: 05/09/21 15:14 Last Admin: 04/10/21 13:56 Dose: 100 mg Documented by: Gabapentin (Gabapentin 100 Mg Cap) 200 mg PO HS [facility] Stop: 05/09/21 20:59 Last Admin: 04/10/21 19:31 Dose: 200 mg Documented by: Hydromorphone HCl (Hydromorphone Inj 0.5 Mg/0.5 Ml Syr) 0.5 mg IV Q3H PRN PRN Reason: MOD pain (scale 4-6) & Pre PT Stop: 04/23/21 14:55 Hydromorphone HCl (Hydromorphone Inj 1 Mg/Ml Syringe) 1 mg IV Q3H PRN PRN Reason: severe pain (scale 7-10) Stop: 04/23/21 14:55 Hydroxyzine HCl (Hydroxyzine Hcl 25 Mg Tab) 25 mg PO Q8H PRN PRN Reason: Anxiety Stop: 05/09/21 14:55 Lorazepam (Ativan) 0.5 mg in 1 mls @ 1 mls/min IV Q8H PRN PRN Reason: Sedation/Anxiety Stop: 05/09/21 14:55 Promethazine HCl 12.5 mg/ (Sodium Chloride) 50.5 mls @ 202 mls/hr IV Q6H PRN PRN Reason: Nausea &/or Vomiting Stop: 05/09/21 14:55 Influenza Virus Vaccine Quadrival (Do Not Administer Flu Vaccine) 1 ea N/A PRN PRN PRN Reason: Notification Stop: 05/09/21 14:55 Lisinopril (Lisinopril 20 Mg Tab) 20 mg PO QAM [facility] Stop: 05/10/21 08:59 Last Admin: 04/10/21 08:22 Dose: Not Given Documented by: Lorazepam (Lorazepam 0.5 Mg Tab) 0.5 mg PO Q8H PRN PRN Reason: sedation/anxiety Stop: 05/09/21 14:55 Magnesium Hydroxide (Magnesium Hydroxide Susp 30 Ml Udc) 30 ml PO Q24H PRN PRN Reason: Constipation Stop: 05/09/21 14:55 Metoclopramide HCl (Metoclopramide Hcl Inj 5 Mg/Ml 2 Ml Vial) 10 mg IV Q6H PRN PRN Reason: Nausea &/or Vomiting Stop: 05/09/21 14:55 Last Admin: 04/09/21 15:38 Dose: 10 mg Documented by: Montelukast Sodium (Montelukast Sodium 10 Mg Tablet) 10 mg PO PM [facility] Stop: 05/09/21 20:59 Last Admin: 04/10/21 19:31 Dose: 10 mg Documented by: Naloxone HCl (Naloxone Hcl 0.4 Mg/1 Ml Vial/Carp) 0.1 mg IV Q5M PRN PRN Reason: Oversedation/respiratory dep Stop: 05/09/21 14:55 Ondansetron HCl (Ondansetron Inj 2 Mg/Ml 2 Ml Vial) 4 mg IV Q6H PRN PRN Reason: Nausea &/or Vomiting Stop: 05/09/21 14:55 Ondansetron HCl (Ondansetron 4 Mg Od Tab) 4 mg PO Q6H PRN PRN Reason: Nausea Stop: 05/09/21 14:55 Oxycodone HCl (Oxycodone Hcl Ir 5 Mg Tab (Immediate Release)) 5 - 10 mg PO Q4H PRN PRN Reason: Pain & Pre PT Stop: 04/23/21 14:55 Pneumococcal Polyvalent Vaccine (Do Not Administer Pneumococcal Vaccine) 1 ea N/A PRN PRN PRN Reason: Notification Stop: 05/09/21 14:55 Polyethylene Glycol (Polyethylene (Miralax) 17 Gm Pack) 17 gm PO Q6 [facility] Stop: 05/10/21 05:59 Last Admin: 04/11/21 05:56 Dose: 17 gm Documented by: Senna/Docusate Sodium (Docusate Sodium/Senna 50/8.6mg Tab) 2 tab PO HS [facility] Stop: 05/09/21 20:59 Last Admin: 04/10/21 19:32 Dose: 2 tab Documented by: Simvastatin (Simvastatin 20 Mg Tab) 20 mg PO HS [facility] Stop: 05/09/21 20:59 Last Admin: 04/10/21 19:32 Dose: 20 mg Documented by: Sodium Biphosphate/Sodium Phosphate (Sod Phosphate/Sod Biphosphate Enema 132 Ml Btl) 132 ml HI ONE PRN PRN Reason: Constipation Stop: 05/09/21 14:55 Tramadol HCl (Tramadol Hcl 50 Mg Tablet) 50 - 100 mg PO Q4H PRN PRN Reason: Moderate-Severe pain & Pre PT Stop: 05/09/21 14:55
[2021-04-11] MEDS: CETIRIZINE HCL 10 MG TABLET PO SCH (08:32)
[2021-04-11] MEDS: GABAPENTIN 100 MG CAP PO SCH ×3 (08:33→19:52)
[2021-04-11] MEDS: lisinopril 20 MG TAB PO SCH (08:33)
--- NOTE | 2021-04-11 10:57 | Orthopedic Progress Note ---
Date of Service April 11, 2021 Assessment & Plan (1) Neurogenic claudication due to lumbar spinal stenosis: Admission and Anticipated Discharge Date Admission Date: April 09, 2021 At this time continue physical therapy monitor ROCIO output anticipate possible discharge home tomorrow. Subjective Back pain controlled leg pain markedly improved Physical Exam Physical Exam: Patient is comfortable is good strength testing. Results & Data ([facility]) Vital Signs (Past 12 Hours) Vital Signs Temp Pulse Resp BP BP Pulse Ox 04/11/21 08:10 109/68 04/11/21 07:56 36.7 C 71 16 88/57 L 95/61 L 98
[2021-04-11] MEDS ORDERED: bisacodyL 10 MG SUPP PR PRN (13:06)
[2021-04-11] MEDS: SIMVASTATIN 20 MG TAB PO SCH (19:51)
[2021-04-11] MEDS: DOCUSATE SODIUM/SENNA 50/8.6MG TAB PO SCH (19:52)
[2021-04-11] MEDS: MONTELUKAST SODIUM 10 MG TABLET PO SCH (19:52)
[2021-04-12 06:14] LABS: Hematocrit (blood only) 29.2 % (37-47); Hemoglobin 9.6 g/dL (12.0-16.0)
[2021-04-12 06:43] LABS: BUN Creatinine Ratio 16.1 (10-20); Creatinine Clr Calc Pharmacy 89.4 ml/min; Est GFR (Non-African American) 72.5 ml/min; Potassium 4.5 mmol/L (3.5-5.1)
[2021-04-12] MEDS: GABAPENTIN 100 MG CAP PO SCH (08:20)
[2021-04-12] MEDS: CETIRIZINE HCL 10 MG TABLET PO SCH (08:20)
[2021-04-12] MEDS: lisinopril 20 MG TAB PO SCH (08:20)
--- NOTE | 2021-04-12 08:20 | Hospitalist Progress Note ---
Date of Service April 12, 2021 Assessment & Plan (1) Status post lumbar surgery: Post op day# 3 S/P L3-L5 decompression and fusion by Dr Sauceda -pain management per ortho -wound management per ortho -PT/OT as appropriate -DVT prophylaxis per ortho -incentive spirometry -monitor H&H for acute blood loss anemia; pre-op Hgb: 12.7 Anemia, acute blood loss (post-op) and dilutional - current Hgb 9.6 (stable from yesterday), preop Hgb 12.7 - expected, no need for blood transfusion at this time (2) Hypertension: -Continue lisinopril with holding parameters (3) Hyperlipidemia: -Continue simvastatin (4) Asthma: -Continue montelukast, albuterol prn DVT Prophylaxis -SCDs per ortho Disposition per primary service Follows with Anshul Hess PA-C for routine care Thank you for this consultation. We will follow the patient with you during their hospital stay. You can reach a member of the [facility] 08/05 via tiger text Admission and Anticipated Discharge Date Admission Date: April 09, 2021 Subjective Patient seen in postop, medical consult Currently sitting up in chair, in no acute distress, just ate breakfast Reports she is walking w/o much difficulty Denies any chest pain, shortness of breath, abdominal pain, nausea or vomiting also denies any fevers or chills Review of Systems Review of Systems: All systems reviewed & are unremarkable except as noted in HPI & below Constitutional: no fever and no chills Respiratory: no cough and no dyspnea Cardiovascular: no chest pain and no palpitations Gastrointestinal: no abdominal pain, no nausea and no vomiting Physical Exam Physical Exam: General: no distress, obese Head: normocephalic, atraumatic Eyes: conjunctiva non-injected, anicteric ENT: normal inspection external ears, nose, mucous membranes moist Neck: supple, trachea midline Lungs: clear, no respiratory distress, no wheezing/rhonchi/rales CV: RRR, no murmur,no pretibial edema Abd: normal BS, soft, non-tender Back: Surgical dressing in place is dry, ROCIO drain in place Ext: no cyanosis, no calf tenderness; pedal pushes and pulls intact bilaterally Neuro: A&O x 3, no focal deficits noted, normal affect Skin: warm, dry Results & Data Results & Data ([facility]) Vital Signs (Past 12 Hours) Vital Signs Temp Pulse Resp BP BP Pulse Ox 04/12/21 07:36 36.8 C 74 16 123/85 95 04/11/21 23:10 36.9 C 76 18 114/70 96 Laboratory Results 04/12/21 04/12/21 Range/Units 05:50 05:50 Hgb 9.6 L (12.0-16.0) g/dL Hct 29.2 L (37-47) % Sodium 139 (136-145) mmol/L Potassium 4.5 (3.5-5.1) mmol/L Chloride 106 (98-107) mmol/L Carbon Dioxide 31 (21-32) mmol/L Anion Gap 3.0 (3-11) BUN 15 (7-18) mg/dl Creatinine 0.90 (0.6-1.2) mg/dl Est Cr Clr Drug Dosing 89.4 ml/min Est GFR ( Amer) 84.0 ml/min Est GFR (Non-Af Amer) 72.5 ml/min BUN/Creatinine Ratio 16.1 (10-20) Glucose 89 (70-99) mg/dl Calcium 9.0 (8.5-10.1) mg/dl Medications Administered Current Inpatient Medications Acetaminophen (Acetaminophen 500 Mg Tab) 1,000 mg PO Q8H PRN PRN Reason: MILD Pain Scale 1,2,3 & Pre PT Stop: 05/09/21 14:55 Last Admin: 04/11/21 18:22 Dose: 1,000 mg Documented by: Al Hydrox/Mg Hydrox/Simethicone (Aluminum/Magnesium Susp 30 Ml Udc) 30 ml PO Q6H PRN PRN Reason: Dyspepsia Stop: 05/09/21 14:55 Bisacodyl (Bisacodyl 10 Mg Supp) 10 mg KY DAILY PRN PRN Reason: Constipation Stop: 05/11/21 13:05 Cetirizine HCl (Cetirizine Hcl 10 Mg Tablet) 10 mg PO QAM MARIBEL Stop: 05/10/21 08:59 Last Admin: 04/11/21 08:32 Dose: 10 mg Documented by: Diphenhydramine HCl (Diphenhydramine Capsule 25 Mg Cap) 25 mg PO Q6H PRN PRN Reason: Allergic Rhinitis/Insomnia Stop: 05/09/21 14:55 Famotidine (Famotidine 20 Mg Tab) 20 mg PO Q12H PRN PRN Reason: Dyspepsia Stop: 05/09/21 14:55 Gabapentin (Gabapentin 100 Mg Cap) 100 mg PO BID@0900,1400 [facility] Stop: 05/09/21 15:14 Last Admin: 04/11/21 14:10 Dose: 100 mg Documented by: Gabapentin (Gabapentin 100 Mg Cap) 200 mg PO HS MARIBEL Stop: 05/09/21 20:59 Last Admin: 04/11/21 19:52 Dose: 200 mg Documented by: Hydromorphone HCl (Hydromorphone Inj 0.5 Mg/0.5 Ml Syr) 0.5 mg IV Q3H PRN PRN Reason: MOD pain (scale 4-6) & Pre PT Stop: 04/23/21 14:55 Hydromorphone HCl (Hydromorphone Inj 1 Mg/Ml Syringe) 1 mg IV Q3H PRN PRN Reason: severe pain (scale 7-10) Stop: 04/23/21 14:55 Hydroxyzine HCl (Hydroxyzine Hcl 25 Mg Tab) 25 mg PO Q8H PRN PRN Reason: Anxiety Stop: 05/09/21 14:55 Lorazepam (Ativan) 0.5 mg in 1 mls @ 1 mls/min IV Q8H PRN PRN Reason: Sedation/Anxiety Stop: 05/09/21 14:55 Promethazine HCl 12.5 mg/ (Sodium Chloride) 50.5 mls @ 202 mls/hr IV Q6H PRN PRN Reason: Nausea &/or Vomiting Stop: 05/09/21 14:55 Influenza Virus Vaccine Quadrival (Do Not Administer Flu Vaccine) 1 ea N/A PRN PRN PRN Reason: Notification Stop: 05/09/21 14:55 Lisinopril (Lisinopril 20 Mg Tab) 20 mg PO QAM [facility] Stop: 05/10/21 08:59 Last Admin: 04/11/21 08:33 Dose: Not Given Documented by: Lorazepam (Lorazepam 0.5 Mg Tab) 0.5 mg PO Q8H PRN PRN Reason: sedation/anxiety Stop: 05/09/21 14:55 Magnesium Hydroxide (Magnesium Hydroxide Susp 30 Ml Udc) 30 ml PO Q24H PRN PRN Reason: Constipation Stop: 05/09/21 14:55 Metoclopramide HCl (Metoclopramide Hcl Inj 5 Mg/Ml 2 Ml Vial) 10 mg IV Q6H PRN PRN Reason: Nausea &/or Vomiting Stop: 05/09/21 14:55 Last Admin: 04/09/21 15:38 Dose: 10 mg Documented by: Montelukast Sodium (Montelukast Sodium 10 Mg Tablet) 10 mg PO PM MARIBEL Stop: 05/09/21 20:59 Last Admin: 04/11/21 19:52 Dose: 10 mg Documented by: Naloxone HCl (Naloxone Hcl 0.4 Mg/1 Ml Vial/Carp) 0.1 mg IV Q5M PRN PRN Reason: Oversedation/respiratory dep Stop: 05/09/21 14:55 Ondansetron HCl (Ondansetron Inj 2 Mg/Ml 2 Ml Vial) 4 mg IV Q6H PRN PRN Reason: Nausea &/or Vomiting Stop: 05/09/21 14:55 Ondansetron HCl (Ondansetron 4 Mg Od Tab) 4 mg PO Q6H PRN PRN Reason: Nausea Stop: 05/09/21 14:55 Oxycodone HCl (Oxycodone Hcl Ir 5 Mg Tab (Immediate Release)) 5 - 10 mg PO Q4H PRN PRN Reason: Pain & Pre PT Stop: 04/23/21 14:55 Pneumococcal Polyvalent Vaccine (Do Not Administer Pneumococcal Vaccine) 1 ea N/A PRN PRN PRN Reason: Notification Stop: 05/09/21 14:55 Senna/Docusate Sodium (Docusate Sodium/Senna 50/8.6mg Tab) 2 tab PO HS MARIBEL Stop: 05/09/21 20:59 Last Admin: 04/11/21 19:52 Dose: Not Given Documented by: Simvastatin (Simvastatin 20 Mg Tab) 20 mg PO HS [facility] Stop: 05/09/21 20:59 Last Admin: 04/11/21 19:51 Dose: 20 mg Documented by: Sodium Biphosphate/Sodium Phosphate (Sod Phosphate/Sod Biphosphate Enema 132 Ml Btl) 132 ml [place] ONE PRN PRN Reason: Constipation Stop: 05/09/21 14:55 Tramadol HCl (Tramadol Hcl 50 Mg Tablet) 50 - 100 mg PO Q4H PRN PRN Reason: Moderate-Severe pain & Pre PT Stop: 05/09/21 14:55
--- NOTE | 2021-04-12 10:12 | Discharge Summary ---
Date of Service April 12, 2021 Admission HPI Per Admitting Provider This is a 55-year-old female who presents with chronic persistent back and leg pain. After failing stents course of nonoperative care she is here for surgical invention. Principal Diagnosis Lumbar spinal stenosis with neurogenic claudication Discharge Data Allergies Allergy/AdvReac Type Severity Reaction Status Date / Time pseudoephedrine AdvReac Intermediate Heart Verified 04/09/21 08:34 [From Sudafed] racing/palpitations muscle relaxers AdvReac Intermediate Anxiety/res Uncoded 04/09/21 08:34 tlessness vanilla AdvReac Intermediate Vomiting Uncoded 04/09/21 08:34 Consultations 04/09/21 14:56 Consult Hospitalist Routine Procedures Performed Operation Date: 04/09/21 09:45 Actual Procedures p L3-L5 Decompression and Fusion, Spinal Cord Monitoring(Bilateral) - Mat Sauceda DO Ordered Studies 04/09/21 09:45 FL lumbar spine 2-3V Routine Hospital Course (1) Neurogenic claudication due to lumbar spinal stenosis: Patient underwent lumbar decompression fusion LSO was taken to orthopedic for postoperative. Postop day 1 she was up and ambulating progressed to postop day #2 on postop day 3 pain was well controlled ROCIO drain decreasing probably. Excellent strength testing. Subsequent discharge home. Discharge orders instructions from the chart for further review. Total Time Total Time Spent Total Time Spent (In Minutes): 20 minutes Discharge Plan Discharge Items Patient Disposition: Home - Self-Care Reason For Visit: Spinal Stenosis, Lumbar Region with Neurogenic Cla Discharge Diagnosis: Lumbar spinal stenosis with neurogenic claudication Activity: As commented below Non-emergency contact: Primary Care Provider Call non-emergency contact if: you have any medication questions Follow-up/Referrals: Anshul Hess PA-C [Primary Care Provider] - Diet: Regular Addtl Attending Provider Instructions: ACTIVITY RECOMMENDATIONS: SELF CARE INSTRUCTIONS AFTER THORACIC/LUMBAR FUSIONS 1. You may walk to your tolerance. It is good exercise for your legs and back. Expect some back and intermittent leg aches and pains. 2. You may perform "counter-top" level activities (make a sandwich, ritika with a project, etc.). 3. No bending or lifting of more than 10 pounds or back twisting of any nature (roll like a log when turning in bed). 4. You may ride in a car for 20-30 minutes at a time. No driving until after your first visit with your doctor. 5. Frequent changes of position and restricting sitting to 30 minutes at a time will help limit the amount of back spasms and stiffness you may experience. 6. You may discontinue the use of ambulatory aids (cane, crutches, etc.) once your strength and confidence allow. 7. You may engineering program manager the shower and let water strike your incision when you arrive home at least once daily. Do not take a tub bath, sit in a hot tub or go into a swimming pool until after your first recheck in the office. SPECIAL CARE INSTRUCTIONS: VERY IMPORTANT TO READ AND REVIEW A. Your surgical incision has been closed with a cosmetic suture under the skin that will dissolve in about 6 weeks. In 14 days, you can use a pair of clean scissors and cut the suture that is left outside of the skin at the ends of your incision. 1. The small skin tapes can be removed 7 days after surgery if they have not fallen off by that point. 2. You may keep the wound open to air as much as possible to promote healing after post-op day number 5 unless told otherwise by your doctor. 3. If you think the wound looks like it is becoming infected (redness or worsening drainage) and/or you are experiencing fever, chill or worsening back pain and muscle spasms, contact the office so that we may evaluate you as soon as possible. B. Complications are uncommon, but please contact us if you have any signs or symptoms of: 1. wound infection (fever higher than 102.5 degrees F, redness, separation of wound, drainage, or increasing pain from the incision) 2. blood clots in legs (pain, swelling, redness and warmth in legs) 3. urinary tract infection (fever higher than 102.5 degrees F, burning upon urination or increased frequency of urination) 4. nerve problems (inability to walk on your toes or heels, numbness, loss of bowel or bladder control) 5. any other symptoms that concern you C. Please call the office at if you have any concerns or questions about your operation or recovery. D. No smoking! Smoking drastically decreases the chance of a solid fusion. E. Do not take any anti-inflammatory medications (Indocin, Advil, Motrin, Aspirin, Naprosyn, etc.) as these may inhibit the chance of a solid fusion. Tylenol is okay to take for pain. MANAGING PAIN AFTER SPINAL SURGERY 1. Narcotic medication is intended for short-term use and will be provided for surgical pain. Surgical pain usually lasts for a period of 4-6 weeks. Narcotic medication includes Percocet, Vicodin, Darvocet, Tylenol #3 or Lortab. 2. Longer-term pain is more appropriately treated with non-narcotic medication such as Tylenol ES. 3. Muscle spasm is not appropriately treated with narcotics. Muscle relaxers such as Soma, Flexeril or Skelaxin can be used along with Tylenol ES. 4. Remember that we all live with some "aches and pains". This is not unusual or uncommon after an injury or as we get older. a. Back pain is expected and may include muscle spasms for 4 to 6 weeks after surgery. The pain should gradually improve. If the pain worsens for no apparent reason, please contact the office. b. Intermittent leg pain may also be experienced and should not be concerned about unless it worsens for no apparent reason. If so, please contact the office. 5. We will provide appropriate medication within the normal guidelines of their prescribed use. We will also be very cautious and aware of potential abuse and extended duration of patients' medication needs. a. Pain medications are for your comfort and to assist with sleep and rest so that the tissue can heal. They are not provided in order to return to normal activity and should not be used through the day. To do so or worsening pain at night can result from ongoing tissue damage and development of tolerance to the prescribed medicine. 6. Please allow 2-3 days to process refills. Prescriptions will not be mailed but must be picked up at the office. FOLLOW UP VISIT: Keep your scheduled follow-up appointment. Any questions, please call the office at . Pending Studies at Discharge: No Stand-Alone Forms: [employer], Smoking Cessation Medications and DC Order Prescriptions: New tramadol 50 mg tablet 50 mg PO Q6H PRN (Reason: pain, moderate) Qty: 30 RF: 0 oxycodone 5 mg tablet 5 mg PO Q6H PRN (Reason: pain, severe) Qty: 30 RF: 0 Continued cetirizine [Zyrtec] 10 mg Tablet 10 mg PO QAM RF: 0 lisinopril 20 mg Tablet 20 mg PO QAM RF: 0 simvastatin [Zocor] 20 mg Tablet 20 mg PO HS RF: 0 montelukast 10 mg Tablet 10 mg PO PM RF: 0 gabapentin 100 mg Tablet 100 mg PO TID RF: 0 albuterol sulfate 90 mcg/actuation Hfa Aerosol Inhaler 1 puff INHALATION QID PRN (Reason: Wheezing) RF: 0 Discharge Orders: Discharge Order (Routine); Ordered 04/12/21 Ordered By: Mat Sauceda Admission Data Admit Date/Time: 04/09/21 13:32 Attending Provider: Mat Sauceda Admit Provider: Mat Sauceda Primary Care Provider: Anshul Hess Other Providers: Jimmie Malloy
== END 2021-04-12 12:24 | disposition home or self-care (01) | DRG 455 ==
LOC: ASU 07:54 → 3E 13:32